=== PATIENT | female | born 1980 | race Caucasian/White ===

== ENCOUNTER 2021-10-05 10:55 | Emergency (ER) | payer SELFPAY ==
[2021-10-05 11:15] VITALS: BP 128/82; PULSE 76; TEMP 98.2; BMI 28.6
[2021-10-05] MEDS ORDERED: diazePAM 5 MG TABLET PO ONE (12:15)
[2021-10-05] MEDS ORDERED: ACETAMINOPHEN 500 MG TABLET (FP) PO ONE (12:15)
[2021-10-05] MEDS ORDERED: ACETAMINOPHEN 500 MG TABLET (FP) ONE (12:20)
[2021-10-05] MEDS ORDERED: diazePAM 5 MG TABLET ONE (12:20)
== END 2021-10-05 14:00 | disposition home or self-care (01) ==
LOC: JERFT 10:55
DX: M79.602 Pain in left arm (principal)
CPT/HCPCS: 73090-TC-LT-FY; 73110-TC-LT-FY; 99284-25

== ENCOUNTER 2023-03-05 14:11 | Observation (INO) | payer OTHER ==
[2023-03-05 14:33] VITALS: BMI 29.6
[2023-03-05] MEDS ORDERED: METOCLOPRAMIDE HCL INJECTION 10 MG/2 ML VIAL ONE (15:25)
[2023-03-05] MEDS ORDERED: ACETAMINOPHEN INJECTION 100 ML IVPB ONE (15:26)
[2023-03-05] MEDS ORDERED: ACETAMINOPHEN 1000 MG/100 ML BAG IVPB ONE (15:34)
[2023-03-05] MEDS ORDERED: SODIUM CHLORIDE 0.9% 500 ML INFUS.BAG IV ONE (15:39)
[2023-03-05] MEDS ORDERED: METOCLOPRAMIDE HCL INJECTION 10 MG/2 ML VIAL IVPUSH ONE (15:39)
[2023-03-05 15:49] LABS: VENOUS BASE EXCESS 0.1 mmol/L (-2-2); VENOUS O2 SATURATION 73.8 % (70-80); VENOUS PCO2 40.8 mmHg (38-52); VENOUS PH 7.402 (7.310-7.410)
[2023-03-05 15:50] LABS: BASO % 0.8 % (0-2.0); EOS % 0.9 % (0-4.5); HEMATOCRIT 42.4 % (32.4-45.2); HEMOGLOBIN 13.2 GM/dL (10.7-15.3); LYMPH % 31.5 % (8-40); MCHC 31.2 g/dl (32.0-36.0); MEAN PLT VOLUME 9.6 fl (7.5-11.1); MONO % 5.4 % (3.8-10.2); NEUT % 61.4 % (42.8-82.8); PLATELET COUNT 364 10^3/uL (134-434); RDW 14.5 % (11.6-15.6); WHITE BLOOD COUNT 11.6 K/mm3 (4.0-10.0)
[2023-03-05 15:57] LABS: INR 0.9 (0.83-1.09); PROTHROMBIN TIME (PATIENT) 10.4 SEC (9.7-13.0)
[2023-03-05 16:00] LABS: ACTIVATED PTT 24.8 SECONDS (25.2-36.5)
[2023-03-05 16:31] LABS: ALBUMIN 3.8 g/dl (3.4-5.0); BILIRUBIN,TOTAL 0.2 mg/dL (0.2-1); BLOOD UREA NITROGEN 7.8 mg/dL (7-18); CALCIUM 9.6 mg/dL (8.5-10.1); CREATININE 0.8 mg/dL (0.55-1.3); LACTIC ACID 2.8 mmol/L (0.4-2.0); MAGNESIUM 1.9 mg/dL (1.8-2.4); TOT PROT 7.5 g/dl (6.4-8.2)
[2023-03-05] MEDS ORDERED: ACETAMINOPHEN 500 MG TABLET (FP) PO PRN (17:57)
[2023-03-05 20:46] VITALS: BP 112/76; PULSE 88; RESP 17; TEMP 97.8
[2023-03-05] MEDS ORDERED: METOPROLOL TARTRATE 50 MG TABLET (FP) PO SCH (22:00)
[2023-03-06] MEDS ORDERED: INSULIN SLIDING SCALE (NOVOLOG) 1 VIAL SQ SCH (07:00)
== END 2023-03-05 21:07 | disposition left against medical advice (07) ==
LOC: JER 14:11 → JERBED 16:57
PROVIDERS: ADMIT Internal Medicine; ATTEND Internal Medicine
PROC: 3E0337Z Introduction of Electrolytic and Water Balance Substance into Peripheral Vein, Percutaneous Approach (ICD-10-PCS; principal; 2023-03-05)
PROC: 3E033NZ Introduction of Analgesics, Hypnotics, Sedatives into Peripheral Vein, Percutaneous Approach (ICD-10-PCS; 2023-03-05)
DX: E11.65 Type 2 diabetes mellitus with hyperglycemia (principal); R51.9 Headache, unspecified; R56.9 Unspecified convulsions; I10 Essential (primary) hypertension; Z88.5 Allergy status to narcotic agent; Z88.8 Allergy status to other drugs, medicaments and biological substances
CPT/HCPCS: 0241U-QW; 36415; 70450-TC; 71045-TC-FY; 80053; 82010; 82550; 82803; 82962; 83036; 83605; 83735; 84443; 84484; 84703; 85025; 85610; 85730; 86850; 86900; 86901; 93005; 93010; 99285-25; G0378

== ENCOUNTER 2023-05-10 14:34 | Emergency (ER) | payer OTHER ==
[2023-05-10 15:00] VITALS: BP 137/83; PULSE 99; RESP 20; TEMP 98.2; BMI 28.8
[2023-05-10] MEDS ORDERED: KETOROLAC TROMETHAMINE 15 MG/ML VIAL IVPUSH ONE (15:45)
[2023-05-10] MEDS ORDERED: morphine CARPU-JECT 4 MG/1 ML DISP.SYRIN IVPUSH ONE (15:47)
[2023-05-10] MEDS ORDERED: KETOROLAC TROMETHAMINE 15 MG/ML VIAL ONE (15:47)
[2023-05-10] MEDS ORDERED: morphine SULFATE 4 MG/ML VIAL ONE (15:50)
[2023-05-10 16:26] LABS: BASO % 0.4 % (0-2.0); EOS % 0.6 % (0-4.5); HEMATOCRIT 40.4 % (32.4-45.2); LYMPH % 37.8 % (8-40); MCH 25.5 pg (25.7-33.7); MCHC 32.3 g/dl (32.0-36.0); MEAN CELL VOLUME 78.8 fl (80-96); MEAN PLT VOLUME 8.7 fl (7.5-11.1); MONO % 6.4 % (3.8-10.2); NEUT % 54.8 % (42.8-82.8); PLATELET COUNT 321 10^3/uL (134-434); RBC 5.12 M/mm3 (3.60-5.2); RDW 14.4 % (11.6-15.6); WHITE BLOOD COUNT 10.2 K/mm3 (4.0-10.0)
[2023-05-10 16:42] LABS: POTASSIUM 3.9 mmol/L (3.5-5.1)
[2023-05-10 16:44] LABS: ALBUMIN 3.6 g/dl (3.4-5.0); BLOOD UREA NITROGEN 7.6 mg/dL (7-18); CALCIUM 9.3 mg/dL (8.5-10.1)
[2023-05-10 16:47] LABS: CREATININE 0.7 mg/dL (0.55-1.3)
[2023-05-10 16:49] LABS: BILIRUBIN,TOTAL 0.2 mg/dL (0.2-1); TOT PROT 7.5 g/dl (6.4-8.2)
== END 2023-05-10 18:10 | disposition home or self-care (01) ==
LOC: JERFT 14:34
PROC: 3E033GC Introduction of Other Therapeutic Substance into Peripheral Vein, Percutaneous Approach (ICD-10-PCS; principal; 2023-05-10)
DX: M79.622 Pain in left upper arm (principal); M79.605 Pain in left leg; W00.0XXA Fall on same level due to ice and snow, initial encounter
CPT/HCPCS: 36415; 73030-TC-LT-FY; 73060-TC-LT-FY; 73070-TC-LT-FY; 73090-TC-LT-FY; 73110-TC-LT-FY; 73130-TC-LT-FY; 75635-TC; 80053; 84703; 85025; 99285-25; Q9967

== ENCOUNTER 2023-09-02 09:40 | Emergency (ER) | payer OTHER ==
[2023-09-02 09:47] VITALS: BP 149/80; PULSE 72; RESP 18; TEMP 98; BMI 28.8
[2023-09-02] MEDS ORDERED: KETOROLAC TROMETHAMINE 30 MG/1 ML VIAL ONE (12:03)
[2023-09-02] MEDS ORDERED: ACETAMINOPHEN 325 MG TABLET (FP) ONE (12:03)
[2023-09-02] MEDS: KETOROLAC TROMETHAMINE 30 MG/1 ML VIAL IVPUSH ONE (12:05)
[2023-09-02] MEDS: ACETAMINOPHEN 325 MG TABLET (FP) PO ONE (12:06)
== END 2023-09-02 12:18 | disposition home or self-care (01) ==
LOC: JERFT 09:40
PROC: 3E0333Z Introduction of Anti-inflammatory into Peripheral Vein, Percutaneous Approach (ICD-10-PCS; principal; 2023-09-02)
DX: M25.511 Pain in right shoulder (principal)
CPT/HCPCS: 99284-25